=== PATIENT | female | born 1940 | race Two or more races ===

== ENCOUNTER 2018-05-20 09:39 | Outpatient (CLI) | payer MEDICARE | END 2018-05-20 09:40 | disposition home or self-care (01) | LOC: RAD 09:39 | DX: Z13.820 Encounter for screening for osteoporosis (principal) ==

== ENCOUNTER 2018-06-02 09:35 | Outpatient (CLI) | payer MEDICARE | END 2018-06-02 09:36 | disposition home or self-care (01) | LOC: RAD 09:35 | DX: R92.8 Other abnormal and inconclusive findings on diagnostic imaging of breast (principal) ==